=== PATIENT | female | born 1990 | race Caucasian/White ===

== ENCOUNTER 2018-04-28 10:36 | Emergency (ER) | payer BC, OTHER ==
[2018-04-28 10:46] VITALS: BP 98/63
--- NOTE | 2018-04-28 11:40 | UC ---
Respiratory Complaint HPI - HPI Summary HPI Summary: started with nasal congestion, headache, and fatigue, PND last week. over past 2 days she has gotten worse sinus pain, upper teeth ache. no cough - History of Current Complaint Chief Complaint: UCGeneralIllness Stated Complaint: SINUS COMPLAINT Time Seen by Provider: 04/28/18 11:16 Hx Obtained From: Patient Hx Last Menstrual Period: 04/03/18 ?: No Onset/Duration: Gradual Onset Timing: Constant Severity Initially: Mild Severity Currently: Moderate Pain Intensity: 5 Associated Signs And Symptoms: Positive: Fever, Nasal Congestion, Sinus Discomfort. Negative: Hemoptysis, Dizziness - Allergies/Home Medications Allergies/Adverse Reactions: Allergies Allergy/AdvReac Type Severity Reaction Status Date / Time No Known Allergies Allergy Verified 04/28/18 10:46 PMH/Surg Hx/FS Hx/Imm Hx Previously Healthy: Yes - Surgical History Surgical History: None Surgery Procedure, Year, and Place: denies - Family History Known Family History: Negative: Hypertension, Diabetes - Social History Occupation: Employed Full-time - hairdresser Lives: With Family Alcohol Use: Weekly Substance Use Type: None Smoking Status (MU): Former Smoker Type: Cigarettes Amount Used/How Often: 2 cigs Length of Time of Smoking/Using Tobacco: 6 months Have You Smoked in the Last Year: Yes Cessation Counseling: Patient Advised to Stop Review of Systems All Other Systems Reviewed And Are Negative: Yes Constitutional: Positive: Fever, Fatigue Skin: Positive: Negative Eyes: Positive: Negative ENT: Positive: Dental Pain, Sinus Congestion, Sinus Pain/Tenderness Respiratory: Positive: Negative. Negative: Cough Cardiovascular: Positive: Negative Genitourinary: Positive: Negative Musculoskeletal: Positive: Negative Neurological: Positive: Negative Psychological: Positive: Negative Is Patient Immunocompromised?: No Physical Exam Triage Information Reviewed: Yes Appearance: Well-Appearing, No Pain Distress, Well-Nourished Vital Signs: Initial Vital Signs Temp 98.4 F 04/28/18 10:43 Pulse 67 04/28/18 10:43 Resp 18 04/28/18 10:43 BP 98/63 04/28/18 10:43 Pulse Ox 99 04/28/18 10:43 Vital Signs Reviewed: Yes ENT: Positive: Nasal congestion, TM dull Dental: Positive: Percussion Tenderness @ - upper bilateral Neck exam: Normal Neck: Positive: Supple, Nontender, No Lymphadenopathy Respiratory Exam: Normal Cardiovascular Exam: Normal Cardiovascular: Positive: RRR Neurological Exam: Normal Psychological Exam: Normal Skin Exam: Normal UC Diagnostic Evaluation - Laboratory O2 Sat by Pulse Oximetry: 99 Respiratory Course/Dx - Differential Dx/Diagnosis Differential Diagnosis/HQI/PQRI: Bronchitis, Influenza, Lower Resp Infection, Sinusitis Provider Diagnosis: Sinusitis Discharge - Sign-Out/Discharge Documenting (check all that apply): Patient Departure All imaging exams completed and their final reports reviewed: No Studies - Discharge Plan Condition: Good Disposition: HOME Prescriptions: Cefdinir cap * [Cefdinir 300 MG cap (NF)] 300 mg PO BID #20 cap Patient Education Materials: Sinusitis (ED) Referrals: Sly Mckinley [employer]ITION ANALYST [Primary Care Provider] - 3 Days (if no better ) Additional Instructions: drink plenty of fluids and rest start antibiotic and take as prescribed consider Afrin nasal decongestant (cover the counter) may us sudafed for nasal congestion - Billing Disposition and Condition Condition: GOOD Disposition: Home
== END 2018-04-28 11:45 | disposition home or self-care (01) ==
LOC: UCEAST 10:36
DX: J32.9 Chronic sinusitis, unspecified (principal); Z87.891 Personal history of nicotine dependence
CPT/HCPCS: 99202; G0463